=== PATIENT | male | born 1995 | race Caucasian/White ===

== ENCOUNTER 2020-07-06 19:08 | Emergency (ER) | payer BC, OTHER ==
[~2020-07-06 19:08] MED LIST: NORCO 7.5-3251 EACH PO
== END 2020-07-06 19:10 | disposition left against medical advice (07) ==
LOC: ER1 19:08
DX: L02.413 Cutaneous abscess of right upper limb (principal); Z53.21 Procedure and treatment not carried out due to patient leaving prior to being seen by health care provider